=== PATIENT | male | born 1990 | race American Indian/Alaskan Native ===

== ENCOUNTER 2019-06-28 15:08 | Emergency (ER) | payer SELFPAY ==
[2019-06-28] MEDS ORDERED: IBUPROFEN 600 MG TAB PO ONE (15:47)
[2019-06-28] MEDS ORDERED: dexAMETHasone 4 MG/ML VIAL IM ONE (15:49)
--- NOTE | 2019-06-28 16:27 | Emergency Department Report ---
ED ENT HPI - General Chief complaint: Upper Respiratory Infection Stated complaint: FEVER AND BODY ACHES Time Seen by Provider: 06/28/19 15:31 Source: patient, family, tanning consultant (security Sheldon) Mode of arrival: Ambulatory Limitations: Language Barrier - History of Present Illness Initial comments: Patient is a 29-year-old male presents emergency room with complaints of a sore throat that began 2 days ago. He has associated pain with swallowing, fever, generalized body aches. Patient states he has been taking Tylenol for his fever. Patient also has been taking amoxicillin which was mail ordered from [facility] but is unsure of the exact dose. Patient denies any sick contacts. No past medical history or allergies medications. - Related Data Previous Rx's Medication Instructions Recorded Last Taken Type Amoxicillin/Potassium Clav 1 each PO BID 7 Days #14 tablet 06/28/19 Unknown Rx [Augmentin 875-125 Tablet] Allergies Allergy/AdvReac Type Severity Reaction Status Date / Time No Known Allergies Allergy Unverified 06/28/19 15:10 ED Dental HPI - General Chief complaint: Upper Respiratory Infection Stated complaint: FEVER AND BODY ACHES Time Seen by Provider: 06/28/19 15:31 Source: patient, family Mode of arrival: Ambulatory Limitations: Language Barrier - Related Data Previous Rx's Medication Instructions Recorded Last Taken Type Amoxicillin/Potassium Clav 1 each PO BID 7 Days #14 tablet 06/28/19 Unknown Rx [Augmentin 875-125 Tablet] Allergies Allergy/AdvReac Type Severity Reaction Status Date / Time No Known Allergies Allergy Unverified 06/28/19 15:10 ED Review of Systems ROS: Stated complaint: FEVER AND BODY ACHES Other details as noted in HPI Comment: All other systems reviewed and negative ED Past Medical Hx - Past Medical History Previous Medical History?: Yes Additional medical history: sore throat, heart problems when he was [age] years old - Surgical History Past Surgical History?: No - Social History Smoking Status: Current Every Day Smoker Substance Use Type: Alcohol - Medications Home Medications: Home Medications Medication Instructions Recorded Confirmed Last Taken Type Amoxicillin/Potassium Clav 1 each PO BID 7 Days #14 tablet 06/28/19 Unknown Rx [Augmentin 875-125 Tablet] ED Physical Exam - General Limitations: Language Barrier General appearance: alert, in no apparent distress - Head Head exam: Present: atraumatic, normocephalic - Eye Eye exam: Present: normal appearance - ENT ENT exam: Present: mucous membranes moist, TM's normal bilaterally, normal external ear exam, other (tonsillar hypertrophy and exudates bilaterally, uvula is midline, no uvular edema) - Respiratory Respiratory exam: Present: normal lung sounds bilaterally. Absent: respiratory distress, wheezes, rales, rhonchi, stridor, chest wall tenderness, accessory muscle use, decreased breath sounds, prolonged expiratory - Cardiovascular Cardiovascular Exam: Present: regular rate, normal rhythm, normal heart sounds. Absent: systolic murmur, diastolic murmur, rubs, gallop - Neurological Exam Neurological exam: Present: alert, oriented X3 - Psychiatric Psychiatric exam: Present: normal affect, normal mood - Skin Skin exam: Present: warm, dry, intact ED Course Vital Signs 06/28/19 06/28/19 06/28/19 15:10 15:26 16:18 Temperature 100.5 F H 99.9 F H Pulse Rate 84 Respiratory 24 18 Rate Blood Pressure 88/51 Blood Pressure 104/64 [Right] O2 Sat by Pulse 97 Oximetry 06/28/19 06/28/19 06/28/19 16:22 16:40 17:08 Temperature 103.1 F H Pulse Rate 74 Respiratory 20 20 18 Rate Blood Pressure Blood Pressure 84/47 [Right] O2 Sat by Pulse 100 100 Oximetry 06/28/19 06/28/19 17:58 18:46 Temperature 100.3 F H 99.6 F Pulse Rate 70 87 Respiratory 18 18 Rate Blood Pressure Blood Pressure 79/41 88/51 [Right] O2 Sat by Pulse 100 100 Oximetry ED Medical Decision Making - Medical Decision Making Patient is a 29-year-old male presents emergency room with complaints of a sore throat that began 2 days ago. He has associated pain with swallowing, fever, generalized body aches. Patient states he has been taking Tylenol for his fever. Patient also has been taking amoxicillin which was mail ordered from [facility] but is unsure of the exact dose. Patient denies any sick contacts. No past medical history or allergies medications. vitals with elevated temp and hypotension, pt given ibuprofen/tylenol and given 2L of IVF, and dexamethasone. on exam: tonsillar hypertrophy and exudates bilaterally, uvula is midline, no uvular edema. examination consistent with tonsillitis. no signs of peritonsillar abscess. pt given prescription for augmentin. advised pt to Please take medication as prescribed. may alternate Tylenol then ibuprofen every 4 hours as needed for temperature of 100.4 grater. Increase your fluid intake over the next several days. Throw away your toothbrush and do not drink after others or allow others to drink after you. follow up with a primary care doctor in the next 2-3 days for reexamination. May use warm saltwater gargles and throat spray for throat discomfort. Return to the emergency room for any new or worsening symptoms. kittitian interpretation by security Sheldon - Differential Diagnosis tonsillitis, strep pharyngitis, peritonsillar abscess, mono Critical care attestation.: If time is entered above; I have spent that time in minutes in the direct care of this critically ill patient, excluding procedure time. ED Disposition Clinical Impression: Tonsillitis Disposition: DC- TO HOME OR SELFCARE Is pt being admited?: No Does the pt Need Aspirin: No Condition: Stable Instructions: Tonsillitis (ED) Additional Instructions: Please take medication as prescribed. may alternate Tylenol then ibuprofen every 4 hours as needed for temperature of 100.4 grater. Increase your fluid intake over the next several days. Throw away your toothbrush and do not drink after others or allow others to drink after you. follow up with a primary care doctor in the next 2-3 days for reexamination. May use warm saltwater gargles and throat spray for throat discomfort. Return to the emergency room for any new or worsening symptoms Por favor tome la medicacin segn lo prescrito puede alternar Tylenol y luego ibuprofeno cada 4 horas segn sea necesario para jayleen temperatura de 100.4 rallador. Aumente ignacio ingesta de lquidos en los prximos palomino. Tire ignacio cepillo de dientes y no minal despus de otros ni permita que otros lo tia despus de usted. jaya un seguimiento con un mdico de atencin primaria en los prximos 2- 3 palomino para un nuevo examen. Puede usar grgaras de agua salada tibia y spray para la garganta para el malestar de la garganta. Regrese a la vamshi de emergencias por cualquier sntoma nuevo o que empeore Prescriptions: Amoxicillin/Potassium Clav [Augmentin 875-125 Tablet] 1 each PO BID 7 Days #14 tablet Referrals: [facility] [Provider Group] - 2-3 Days Time of Disposition: 16:25 Print Language: TANZANIAN
[2019-06-28] MEDS ORDERED: ACETAMINOPHEN 325 MG TAB ONE (17:00)
[2019-06-28] MEDS ORDERED: SODIUM CHLORIDE 0.9% 1000 ML 1,000 ML ONE (17:00)
[2019-06-28] MEDS ORDERED: SODIUM CHLORIDE 0.9% 1000 ML 1,000 ML IV ONE ×2 (17:07→18:01)
[2019-06-28] MEDS ORDERED: ACETAMINOPHEN 325 MG TAB PO ONE (17:07)
[2019-06-28 18:47] VITALS: BP 88/51
== END 2019-06-28 18:49 | disposition home or self-care (01) ==
LOC: EDSEX → ED 15:08
DX: J03.90 Acute tonsillitis, unspecified (principal); F17.200 Nicotine dependence, unspecified, uncomplicated; Z88.1 Allergy status to other antibiotic agents
CPT/HCPCS: 96372; 99283; J1100; J7030

== ENCOUNTER 2020-10-10 15:45 | Emergency (ER) | payer SELFPAY ==
[2020-10-10] MEDS ORDERED: HYDROcodone/ACETAMINOPHEN 5-325 MG TAB PO ONE (16:14)
--- NOTE | 2020-10-10 16:56 | XRay Report ---
Right shoulder 3 views INDICATION: Right shoulder pain following injury IMPRESSION: No fracture or subluxation is identified at the glenohumeral joint. There is slight asymm etry of the right AC joint possibly representing underlying AC joint sprain. Signer Name: Adis Desai MD Signed: 10/10/2020 4:52 PM Workstation Name: [id number]
[2020-10-10 17:13] VITALS: BP 98/56
--- NOTE | 2020-10-10 17:14 | Emergency Department Report ---
ED Fall HPI - General Chief Complaint: Fall Stated Complaint: RT SHOULDER INJURY Time Seen by Provider: 10/10/20 16:14 Source: patient, concession worker Mode of arrival: Ambulatory Limitations: Language Barrier - History of Present Illness Initial Comments: language interpretation by Sheldon museum security chief pt is a 30 yo male who presents to the ED with c/o right shoulder injury that occurred just [employer]. the patient states he was coming down the ladder and lost his footing. he states he fell backwards and caught himself with his right arm and hit his right shoulder. he denies falling to the ground. he denies any headache, LOC, vomiting, vision changes, hitting his head, neck pain, back pain, any other injury. he states he has a history of right shoulder dislocation. no allergies to meds - Related Data Previous Rx's Medication Instructions Recorded Last Taken Type Amoxicillin/Potassium Clav 1 each PO BID 7 Days #14 tablet 06/28/19 Unknown Rx [Augmentin 875-125 Tablet] HYDROcodone/APAP 5-325 [[place] 1 each PO Q6HR PRN #12 tablet 10/10/20 Unknown Rx 5/325] Ibuprofen [Motrin 600 MG tab] 600 mg PO Q8H PRN #20 tablet 10/10/20 Unknown Rx Allergies Allergy/AdvReac Type Severity Reaction Status Date / Time No Known Allergies Allergy Unverified 06/28/19 15:10 ED Review of Systems ROS: Stated complaint: RT SHOULDER INJURY Other details as noted in HPI Comment: All other systems reviewed and negative ED Past Medical Hx - Past Medical History Previous Medical History?: Yes Additional medical history: sore throat, heart problems when he was [age] years old - Surgical History Past Surgical History?: Yes - Social History Smoking Status: Current Every Day Smoker Substance Use Type: None - Medications Home Medications: Home Medications Medication Instructions Recorded Confirmed Last Taken Type Amoxicillin/Potassium Clav 1 each PO BID 7 Days #14 tablet 06/28/19 Unknown Rx [Augmentin 875-125 Tablet] HYDROcodone/APAP 5-325 [[place] 1 each PO Q6HR PRN #12 tablet 10/10/20 Unknown Rx 5/325] Ibuprofen [Motrin 600 MG tab] 600 mg PO Q8H PRN #20 tablet 10/10/20 Unknown Rx ED Physical Exam - General Limitations: No Limitations General appearance: alert, in no apparent distress - Head Head exam: Present: atraumatic, normocephalic - Eye Eye exam: Present: normal appearance, PERRL, EOMI. Absent: periorbital swelling, periorbital tenderness - ENT ENT exam: Present: mucous membranes moist - Neck Neck exam: Present: normal inspection, full ROM. Absent: tenderness - Respiratory Respiratory exam: Absent: respiratory distress, accessory muscle use - Extremities Exam Extremities exam: Present: other (ttp to the right distal clavicle and right AC joint, unable to fully flex the shoulder secondary to pain, no ttp of the right elbow, wrist, hand or digits, neurovascularly intact, no sulcus sign) - Neurological Exam Neurological exam: Present: alert, oriented X3, CN II-XII intact, normal gait. Absent: motor sensory deficit - Psychiatric Psychiatric exam: Present: normal affect, normal mood - Skin Skin exam: Present: warm, dry, intact ED Course Vital Signs 10/10/20 10/10/20 10/10/20 16:10 18:19 18:26 Temperature 98.5 F Pulse Rate 72 Respiratory 18 18 18 Rate Blood Pressure 98/56 O2 Sat by Pulse 97 Oximetry ED Medical Decision Making - Radiology Data Radiology results: report reviewed Ordering Physician: ISSA CHAUHAN Date of Service: 10/10/20 Procedure(s): XR shoulder 2+V RT Accession Number(s): [id number] cc: ISSA CHAUHAN Fluoro Time In Minutes: Right shoulder 3 views INDICATION: Right shoulder pain following injury IMPRESSION: No fracture or subluxation is identified at the glenohumeral joint. There is slight asymmetry of the right AC joint possibly representing underlying AC joint sprain. Signer Name: Adis Desai MD Signed: 10/10/2020 4:52 PM Workstation Name: [id number] Transcribed By: Dictated By: Adis Desai MD Electronically Authenticated By: Adis Desai MD Signed Date/Time: 10/10/201651 DD/ 47 TD/TT: - Medical Decision Making language interpretation by Sheldon museum security chief pt is a 30 yo male who presents to the ED with c/o right shoulder injury that occurred just [employer]. the patient states he was coming down the ladder and lost his footing. he states he fell backwards and caught himself with his right arm and hit his right shoulder. he denies falling to the ground. he denies any headache, LOC, vomiting, vision changes, hitting his head, neck pain, back pain, any other injury. he states he has a history of right shoulder dislocation. no allergies to meds. on exam: ttp to the right distal clavicle and right AC joint, unable to fully flex the shoulder secondary to pain, no ttp of the right elbow, wrist, hand or digits, neurovascularly intact, no sulcus sign. XR right shoulder: IMPRESSION: No fracture or subluxation is identified at the glenohumeral joint. There is slight asymmetry of the right AC joint possibly representing underlying AC joint sprain. Patient given pain medication while in the emergency department as he states he did not drive. Discussed all results with patient answered questions, discussed the importance of orthopedic follow-up. Patient placed in shoulder immobilizer by nurse and remained neurovascular intact. Patient given prescription for [place] and ibuprofen. Advised patient please take medication as prescribed. do not drive or operate heavy machinery while taking pain medication. follow up with an orthopedic doctor. its very important you follow up. return to the emergency room for any new or worsening symptoms. Critical care attestation.: If time is entered above; I have spent that time in minutes in the direct care of this critically ill patient, excluding procedure time. ED Disposition Clinical Impression: Sprain of right acromioclavicular joint, initial encounter Disposition: TO HOME OR SELFCARE Is pt being admited?: No Does the pt Need Aspirin: No Condition: Stable Instructions: Shoulder Sprain Additional Instructions: please take medication as prescribed. do not drive or operate heavy machinery while taking pain medication. follow up with an orthopedic doctor. its very important you follow up. return to the emergency room for any new or worsening symptoms. Prescriptions: Ibuprofen [Motrin 600 MG tab] 600 mg PO Q8H PRN #20 tablet PRN Reason: Pain HYDROcodone/APAP 5-325 [[place] 5/325] 1 each PO Q6HR PRN #12 tablet PRN Reason: Pain , Severe (7-10) Referrals: PRIMARY CAREMD [Primary Care Provider] - 2-3 Days SKYLA SELF MD [Staff Physician] - 2-3 Days [facility] [Provider Group] - 2-3 Days Time of Disposition: 17:15 Print Language: INDONESIAN
== END 2020-10-10 18:26 | disposition home or self-care (01) ==
LOC: ED 15:45
DX: S43.51XA Sprain of right acromioclavicular joint, initial encounter (principal); F17.200 Nicotine dependence, unspecified, uncomplicated; Z79.899 Other long term (current) drug therapy; W18.30XA Fall on same level, unspecified, initial encounter; Y93.89 Activity, other specified; Y92.89 Other specified places as the place of occurrence of the external cause; Y99.8 Other external cause status